=== PATIENT | female | born 1940 | race Caucasian/White ===

== ENCOUNTER 2022-09-13 07:28 | Outpatient (CLI) | payer MEDICARE, SELFPAY ==
--- NOTE | ~2022-09-13 | CT_ITS ---
CT of the Abdomen and Pelvis: Indication: Abdominal pain Technique: 2.5 mm axial scans were obtained through the abdomen and pelvis following intravenous adm inistration of 100 cc of Omnipaque 350. Dose reduction technique was used on this scan by utilizing a utomated exposure control and iterative reconstruction technique. The dose-length product (DLP) was 1 288.02 mGy-cm. Findings: Scans through the lung bases are unremarkable. The liver, spleen, pancreas, adrenals and kidneys are within normal limits. Gallbladder is absent. Th ere are atherosclerotic calcifications of the aorta. No lymphadenopathy. No bowel obstruction or bowel wall thickening. Rectosigmoid anastomosis noted. Fat-containing ventral hernia noted. Images through the pelvis are degraded by streak artifact from bilateral hip arthroplasty. Urinary bl adder grossly unremarkable. No definite pelvic mass seen. No ascites evident. Impression: Fat-containing ventral hernia. Postsurgical changes, as above. Reviewed, dictated and finalized at [facility]. Impression: Fat-containing ventral hernia. Postsurgical changes, as above.
[2022-09-13 07:53] LABS: Estimated Glomerular Filt Rate > 60
== END 2022-09-13 07:29 | disposition home or self-care (01) ==
PROVIDERS: PCP Family Medicine; Visit Provider Nurse Practitioner
DX: R10.31 Right lower quadrant pain (principal); R10.11 Right upper quadrant pain; K43.9 Ventral hernia without obstruction or gangrene
CPT/HCPCS: 74177; Q9967